=== PATIENT | female | born 1955 | race Caucasian/White ===

== ENCOUNTER 2019-04-14 07:01 | Observation (INO) | payer BC ==
[2019-04-14] VITALS (7 sets, daily range): BP systolic 148–196; BP diastolic 80–100
[~2019-04-14] VITALS: Ht 165.1 cm; Wt 91.2 kg
[~2019-04-14 07:01] MED LIST: ARAVA20 MG PO; CIMZIA400 MG/2 M INJ; METOPROLOL SUC100 MG PO; MULTI-VITAMIN1 EACH PO; PANTOPRAZOLE SO40 MG PO; Z ETODOLAC PO; Z.0.ARAVA20 MG PO; Z.0.CARTIA XT300 MG PO; Z.0.CEFTIN500 MG PO; [UNRECOGNIZED DRUG - OTHER] IM; [UNRECOGNIZED DRUG - OTHER] PO; [UNRECOGNIZED DRUG - OTHER] PO
--- OUTSIDE RECORDS SUMMARY | 2019-04-14 07:06 | XMS REPORT | Clinical Summary ---
Author Author [facility] Address Unknown Phone Unavailable Care Team Providers Care Air Director Name Role Phone Lukas Rodriguez MD PCP Allergies Comments Active Allergy Reactions Severity Noted Date "FEELS LIKE ANTS BITING ALL OVER" Sulfa (Sulfonamide 01/23/2017 Antibiotics) Medications End Date Status Medication Sig Dispensed Refills Start Date Active DULoxetine (CYMBALTA) 60 0 MG capsule 7 Active BELVIQ XR 20 mg tablet TK 1 T PO QAM 2 extended release 24 hr 7 Active metoprolol tartrate TK 1 T PO BID 5 (LOPRESSOR) 50 mg tablet 7 Active pantoprazole (PROTONIX) 0 40 MG EC tablet 7 Active Problems Problem Noted Date Hallux varus (acquired), right foot 01/23/2017 Family History Medical History Relation Name Comments Cancer Maternal Grandmother Rheumatologic disease Mother Relation Name Status Comments Maternal Grandmother Mother Social History Date Tobacco Use Types Packs/Day Years Used Never Smoker Alcohol Use Drinks/Week oz/Week Comments Yes A glass of wine occasionally. Sex Assigned at Date Recorded Not on file Industry Job Start Date Occupation Not on file Not on file Not on file Travel End Travel History Travel Start No recent travel history available. Last Filed Vital Signs Not on file Plan of Treatment Health Maintenance Due Date Last Done Comments BREAST CANCER SCREENING 2004 COLONOSCOPY SCREENING 2004 SHINGLES VACCINES (#1) 2004 INFLUENZA VACCINE 06/03/2019 Results Not on fileafter 04/13/2018 Insurance Type Payer Benefit Subscriber ID Effective Phone Address Plan / Dates Group PPO BCBS BCBS xxxxxxxxxxxx [id number] CHOICE resent PPO/VENKATA LITTLE PPO Advance Directives Patient has advance care planning documents on file. For more information, madai freitas contact: Moise Guidry [address] [place] [address]
[2019-04-14] MEDS ORDERED: MORPHINE SULFATE 2 MG/ML SYR 1ML IV STA (07:15)
[2019-04-14] MEDS ORDERED: SODIUM CHLORIDE 0.9% 1000ML 1,000 ML IV STA (07:15)
[2019-04-14] MEDS ORDERED: ONDANSETRON HCL INJ 2MG/ML 2ML 2 MG/ML VIAL IV STA (07:15)
[2019-04-14] MEDS ORDERED: MORPHINE SULFATE INJ 4 MG/ML INJ 1ML IV SCH (07:30)
[2019-04-14 07:40] LABS: BILIRUBIN,URINE SMALL (NEGATIVE); CLARITY,URINE SL CLOUDY (CLEAR); COLOR,URINE YELLOW (YELLOW); KETONES,URINE 1+ (NEGATIVE); LEUKOCYTE ESTERASE ,URINE NEGATIVE (NEGATIVE); NITRITE,URINE NEGATIVE (NEGATIVE); PROTEIN,URINE DIPSTICK TRACE (NEGATIVE); URINE UROBILINOGEN 0.2 mg/dL (0.2 - 1)
[2019-04-14 07:45] LABS: BASOPHILS % 0.3 % (0.0-1.0); EOSINOPHILS # (AUTO) 0.3 (0.0-0.4); EOSINOPHILS % 2.3 % (0.0-6.0); HEMATOCRIT 38.4 % (34.2-44.1); HEMOGLOBIN 12.3 g/dL (12.0-16.0); LYMPHOCYTES # (AUTO) 2.4 (1.0-3.2); LYMPHOCYTES % 18.7 % (18.0-39.1); MEAN CORPUSCULAR HEMOGLOBIN 30.1 pg (28-32); MEAN CORPUSCULAR VOLUME 94.1 fL (81-99); MONOCYTES # (AUTO) 0.9 (0.2-0.8); MONOCYTES % 6.8 % (4.4-11.3); NEUTROPHILS # (AUTO) 9.3 (2.1-6.9); NEUTROPHILS % 71.5 % (38.7-80.0); PLATELET COUNT 220 x10e3/uL (140-360); RED BLOOD COUNT 4.08 x10e6/uL (3.6-5.1); RED CELL DISTRIBUTION WIDTH 13.5 % (11.7-14.4)
--- NOTE | 2019-04-14 07:53 | NUR ---
DR KO AT PT BEDSIDE
[2019-04-14 07:57] LABS: INR 0.92; PROTHROMBIN TIME 12.9 seconds (11.9-14.5)
[2019-04-14 07:58] LABS: PARTIAL THROMBOPLASTIN TIME 29.3 seconds (23.8-35.5)
[2019-04-14] MEDS ORDERED: SODIUM CHLORIDE 0.9% 1000ML 1,000 ML IV SCH (07:58)
[2019-04-14 07:59] LABS: BACTERIA,URINE RARE /HPF; EPITHELIAL CELLS,URINE RARE /LPF
[2019-04-14] MEDS ORDERED: HYDROMORPHONE 1MG/1ML INJ IV PRN (08:00)
--- NOTE | 2019-04-14 08:02 | NUR ---
DR KO AT PT BEDSIDE
[2019-04-14 08:07] LABS: ALBUMIN 3.5 g/dL (3.5-5.0); ALBUMIN/GLOBULIN RATIO 1.1 (0.8-2.0); ANION GAP 13.6 mmol/L (8-16); CALCIUM 9.3 mg/dL (8.4-10.2); CREATININE, SERUM 0.99 mg/dL (0.57-1.11); POTASSIUM 3.6 mmol/L (3.5-5.1)
--- OUTSIDE RECORDS SUMMARY | 2019-04-14 08:13 | XMS REPORT | Clinical Summary ---
Author Author [facility] Organization [employer] [facility] Address Unknown Phone Unavailable Care Team Providers Care Security Risk Analyst Name Role Phone Lukas Rodriguez MD PCP [...] more information, madai freitas contact: Moise Guidry [address] [place] [address]
[2019-04-14] MEDS ORDERED: HYDROMORPHONE 2MG/ML 2 MG/ML ML IV PRN (08:15)
[2019-04-14] MEDS ORDERED: CEFTRIAXONE SOD 1 GM/NS 50 ML 50 ML IV SCH (08:30)
[2019-04-14] MEDS ORDERED: DEXTROSE 5%/0.45% SOD CHL 1,000 ML IV ONE ×2 (08:30→19:15)
--- NOTE | 2019-04-14 08:59 | Pre Op History & Physical ---
REASON FOR ADMISSION: Left flank pain. HISTORY: This is a 63-year-old female, who over the last four days has had left flank pain. She has had a history of kidney stones in the past. All the stones have passed spontaneously. The patient states that four days ago, she had some pain in the left flank. The pain intensified, but let go. On the next day, the patient's pain intensified again and she felt like different from before which she feels that the stones moved further rapidly and within 24 to 48 hours they passed. She went to an emergency outpatient facility close to her house. There, she had a CT scan done, was given something for pain and she went home. Her , who was my patient brought the CD to my office yesterday afternoon. We were supposed to see her today in the office to determine what to do and unfortunately overnight she developed severe pain, nausea and vomiting and came to the emergency room for evaluation. PAST MEDICAL HISTORY: Kidney stones. ALLERGIES: NONE KNOWN. MEDICATIONS: See list. SOCIAL HISTORY: , has had children, and not sexually active at this time. Last menstrual period was approximately 20 years ago according to the patient. PHYSICAL EXAMINATION: Physical examination is related only to the abdomen. The examination showed the patient does have a left flank pain radiating to the upper quadrant on the left side with no further radiation. RADIOGRAPHS: CT scan done at the outpatient emergency room facility showed a 4 mm stone just at the level of the ureteropelvic junction. There is minimal dilatation and no pyelo tubular backflow. No perinephric stranding. The pain apparently is quite severe. She has no way of releasing the pressure inside the kidney. IMPRESSION: Kidney stone to the left ureter proximal. RECOMMENDATION: I discussed with the patient doing a cystoscopy, perhaps doing a flexible ureteroscopy to see if we can get to the stone today and remove it if possible. I also discussed with the patient that may be if there is too much swelling that we will be able just place a double-J. The patient understands this. She has agreed. We will admit to the hospital and add her on to the schedule and do her as soon as a room is available. Thank you very much. MD TOBY Hansen/MODL /[id number]
--- NOTE | 2019-04-14 09:50 | NUR ---
Recvd patient from ER via wheelchair. AAOx3, Rating pain 5/10 on left flank , no troubles with breathing. Assisted her to bed, call light in reach. keep monitoring
[2019-04-14] MEDS: ONDANSETRON HCL INJ 2MG/ML 2ML 2 MG/ML VIAL IV PRN ×2 (10:14→15:03)
[2019-04-14] MEDS: CEFAZOLIN SOD 1 GM/NS 50ML 50 ML IV SCH ×3 (10:20→21:25)
[2019-04-14] MEDS ORDERED: MIDAZOLAM HCL 2 MG/2 ML VIAL ONE (13:48)
[2019-04-14] MEDS ORDERED: FENTANYL CITRATE/PF 100MCG/2 ML INJ ONE (13:48)
--- NOTE | 2019-04-14 16:46 | NUR ---
paged Dr Redmond to notify elevated BP 190/100, Patient not in any distress
--- NOTE | 2019-04-14 17:25 | NUR ---
PATIENT OFF THE UNIT FOR PROCEDURE, STABLE, AT BED SIDE
[2019-04-14] MEDS ORDERED: IOPAMIDOL 610MG/1ML 300 MG/ML VIAL IV ONE ×2 (17:53→18:27)
--- NOTE | 2019-04-14 19:00 | NUR ---
Received report from previous nurse. Patient is off the unit having a procedure done. Family at bedside
[2019-04-14] MEDS ORDERED: SUGAMMADEX SODIUM 200 MG/2 ML VIAL IV ONE (19:11)
[2019-04-14] MEDS ORDERED: LABETALOL HCL 20 ML ONE (19:19)
[2019-04-14] MEDS ORDERED: ONDANSETRON HCL INJ 2MG/ML 2ML 2 MG/ML VIAL ONE (19:59)
[2019-04-14] MEDS ORDERED: PROPOFOL IV EMULSION 10 MG/ML 20 ML VIAL ONE (19:59)
[2019-04-14] MEDS ORDERED: ROCURONIUM BROMIDE 10 MG/ML 5ML VIAL ONE (19:59)
[2019-04-14] MEDS ORDERED: LIDOCAINE HCL 2% LOCAL INJ 5 ML SDV VIAL INJ ONE (19:59)
[2019-04-14] MEDS ORDERED: SEVOFLURANE INHAL SOLN 250 ML PEN BTL ONE (19:59)
[2019-04-14] MEDS ORDERED: DEXAMETHASONE SOD PHOS INJ 4 MG/ML VIAL ONE (19:59)
[2019-04-14] MEDS ORDERED: FAMOTIDINE 20 MG/2 ML VIAL IV ONE (19:59)
--- NOTE | 2019-04-14 20:10 | NUR ---
Patient came back to the unit via stretcher from the procedure. Family at bedside. Patient complained of pain after procedure.
--- NOTE | 2019-04-14 21:20 | NUR ---
Called Dr. Redmond about blood pressure medication for the patient. Patient's blood pressure is 196/93. Dr. Redmond said to consult Dr. Gillis Addendum: 04/14/19 at 2237 by Taya Navarro RN Add to above note: Patient said after few minutes being in the room, the pain she had, is completely gone and she is in no pain.
--- NOTE | 2019-04-14 21:55 | NUR ---
Dr. Gillis was consulted about patient's high blood pressure. He placed order for Hydralzine 10 mg, IV q6h, PRN for >170 systolic
[2019-04-14] MEDS ORDERED: HYDRALAZINE HCL 20 MG/ML VIAL IV PRN (22:00)
[2019-04-15] VITALS: BP 146/70
--- NOTE | 2019-04-15 06:59 | NUR ---
Gave report to oncoming nurse. Patient in bed. Call light within reach. at bedside.
[2019-04-15 07:19] VITALS: BP 158/74
--- NOTE | 2019-04-15 08:55 | NUR ---
patient resting in bed, denies any pain, not in any distress, call light in reach, at bed side
[2019-04-15 09:36] VITALS: BP 158/74
[2019-04-15] MEDS ORDERED: ONDANSETRON HCL 4 MG ORAL DISINTEGRATING TAB PO PRN (10:45)
[2019-04-15] MEDS ORDERED: ULTRAM50 MG PO (10:52)
[2019-04-15] MEDS ORDERED: GABAPENTIN300 MG PO (10:52)
[2019-04-15] MEDS ORDERED: MACROBID 100 M100 MG PO (10:52)
[2019-04-15 11:16] VITALS: BP 183/84
--- NOTE | 2019-04-15 12:21 | NUR ---
patient discharged home, Dr Gillis and Dr Redmond had rounds. IV canula removed with tip intact, no ss of infiltration. Prescription given, patient aware about f/up appointment. denies any pain no distress noted, at bed side, transported via wheelchair to [facility]
--- NOTE | 2019-04-15 15:51 | Consultation ---
DATE OF CONSULTATION: 04/15/2019 Cardiac Consultation REASON FOR CONSULTATION: Severe uncontrolled hypertension. HISTORY: A 63-year-old lady, who is known with history of hypertension and kidney stone. The patient had obstructive left kidney stone. She came to the hospital. She had yesterday successful placement of stent and removal of stone by Dr. Redmond. Her blood pressure was as high as 190/100 despite adequate pain management. We started the patient on hydralazine and evaluated the patient. The patient on metoprolol succinate 50 mg a day for years. Her blood pressure at home is 140/100 or 95. She does have also history of severe advanced rheumatoid arthritis, followed by Rheumatology, Dr. Thomas. She does have flare-up episodes. She is maintained on medication including Arava 20 mg a day. Her activities are limited to certain extent, she does have shortness of breath on exertion class III Crisp heart Association classification. There is no orthopnea, no paroxysmal nocturnal dyspnea. There is no angina. There is no lower extremity edema. REVIEW OF SYSTEMS: GENERAL: No fever, no chills. HEENT: Occasional stuffiness. No asthma. CARDIAC: As per above. GI: Bloating and indigestion at time, but no hematemesis, no melena. : As per acute illness. Severe flank pain. MUSCULOSKELETAL: Severe arthritis symptoms in several joints. NEUROLOGICAL: No seizure activity. No deficits. HEMATOLOGY: No easy bruising. No bleeding. ENDOCRINE: No diabetes mellitus. SOCIAL HISTORY: She is . She is nonsmoker. She is social alcohol drinker. She is retired. HOME MEDICATIONS: Metoprolol succinate 50 mg a day, Protonix 40 mg a day, Arava 20 mg a day, and other p.r.n. medications. ALLERGIES: SULFA. PAST MEDICAL HISTORY: 1. Hypertension. 2. Kidney stone. 3. Rheumatoid arthritis. 4. Hysterectomy. 5. Appendectomy. 6. Cholecystectomy. 7. Bilateral cataract surgery. 8. Bilateral knee surgery. 9. Left foot reconstruction surgery. 10. Right rotator cuff surgery. FAMILY HISTORY: Father of lung cancer at age 50. Mother of curb and gutter laborer cancer at age 62. Two healthy brothers. No sisters. One healthy daughter. PHYSICAL EXAMINATION: VITAL SIGNS: Height of 5 feet 5 inches, weight of 201 pounds. Blood pressure currently 158/70 after receiving hydralazine, heart rate of 80, afebrile. HEENT: Pupils are reactive. NECK: No elevation of jugular venous pulsation. CHEST: Clear to auscultation and percussion. HEART: PMI 5th left intercostal space. Normal first and second heart sounds. ABDOMEN: Soft with good bowel sounds. No organomegaly. No abdominal bruits. EXTREMITIES: No cyanosis, no clubbing, no edema. Scars of previous surgeries are noted. No signs of deep venous thrombosis. NEUROLOGIC: Awake, alert, oriented. No motor or sensory deficits. LABORATORY DATA: Sodium of 140, potassium 3.6, BUN of 17, creatinine of 0.99, glucose of 106. White blood cell count of 12.9, hemoglobin 12.2, hematocrit 38%, platelet count of 220. EKG showing normal sinus rhythm. IMPRESSION AND PLAN: 1. Uncontrolled hypertension. 2. Rheumatoid arthritis. 3. Status post recent removal of kidney stone. 4. Obstructive uropathy. 5. Multiple joint surgery. Cardiac gamez, I would recommend adding amlodipine to her metoprolol. The choice of amlodipine is because of the patient's rheumatoid arthritis and she takes several medications which can affect renal function, although I prefer usually BERENICE inhibitor, but for the time being we will go with that. The patient's management of blood pressure discussed at length and explained gentle lowering blood pressure rather than abrupt lowering blood pressure to be done. The patient advised to see her sink cutter or her lawn mower repairer for further cardiac evaluation. She may go home. All this discussed and explained to the patient and her . Questions are answered. TIME SPEND OF DIRECT PATIENT CARE AN DISCUSSION WITH HER AND HER IS MORE THEN 60 MIN MD SAM Ocampo/SARAI /[id number] VAHID
--- NOTE | 2019-04-15 22:09 | Operative Report ---
DATE OF PROCEDURE: 04/14/2019 SURGEON: Britton Redmond MD PREOPERATIVE DIAGNOSIS: Left proximal ureteral calculi. POSTOPERATIVE DIAGNOSIS: Left renal calculi. OPERATION PERFORMED: Cystoscopy, retrograde pyelogram, stone manipulation, flexible ureteroscopy, laser lithotripsy, stone extraction and placement of left double-J. ANESTHESIOLOGIST: Staff. ANESTHESIA: General. 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 The patient also had atrophic vaginitis. She had labia minora fusion over this clitoris. The bladder had grade 1 trabeculation, evidence of soft stenosis of the urethral meatus dilated over the scope. Grade 1 trabeculation of the bladder. Both ureteral orifices were in normal position. DESCRIPTION OF PROCEDURE: With the patient under satisfactory general anesthesia, the patient was placed in the supine position on the operating table. The legs were placed in stirrups. Genitalia was then prepped with Betadine soap and solution and draped in usual manner. At this point, a time-out was obtained. We will agree with the procedure as planned. A 22-Moroccan cystourethroscope was passed per urethra into the bladder. The bladder was inspected with a 12-degree angle lens and 7-degree angle lens was also used to inspect the entire bladder. At this point, using the Amie bridge, contrast media was injected retrograde up to the left side using a #8 cone-tipped ureteral catheter. In the proximal ureter just at the level of the ureteropelvic junction, a filling defect was identified. Extra stiff guidewire was introduced, but it would not pass by the stone. Open-ended catheter was then used with a with a guidewire and after manipulating the stone, pushing the stone pop up into the kidney. At that point, the instruments were removed. A Glidewire was introduced 2nd time to make sure it went up into the kidney and it did. Over the Glidewire, an Olympus balloon 10 cm long 20 atmosphere, was introduced in the intramural portion of the ureter was dilated. At this point, I exchanged the Glidewire for an extra stiff guidewire, removed the balloon dilator and then introduced a ureteral access sheath. This was advanced without any difficulty. The dilator was removed through the guidewire, leaving the sheath in place and the flexible ureteroscope was introduced all the way up to the kidney. It is noted again that there were 2 infundibulums in the intrarenal pelvis. The stone had popped off and had gone into the posterior calyx where it was found by direct vision. Using the laser, the stone was broken into 4 fragments. Stone was soft, only 169 joules, 2.5 cooper were used. The NGage Nitinol basket was then introduced through the working channel of the ureteroscope, the stones were grasped and removed in two trips. At this point, the extra stiff guidewire was introduced all the way up to the upper pole collecting system and a 6-Moroccan [employer] double-J was then introduced over the guidewire and it was coiled in the junction between the upper and lower infundibulum. At this point, contrast media was injected retrograde. No evidence of any extravasation was identified in the proximal or distal ureter. Coil was made in the kidney. The coil was also made in the bladder and the sleeve was used to disengage the pusher and leave the double-J in place. At that point, the string was then taped to the patient's mons pubis. The patient was then taken to the recovery room in satisfactory condition. DISCHARGE INSTRUCTIONS: The patient had laryngeal spasm and some high blood pressure. A consultation was obtained with Dr. Gillis. If the patient was met discharge criteria the next day, she will be sent home. If she was kept for some reason, the patient will be discharged in satisfactory condition after she was seen by Dr. Gillis. The patient was given tramadol for pain. She was also given Macrobid to take one tablet p.o. b.i.d. She will be seen in the office on Friday to remove the double-J. We will need a 24-hour urine collection after that as well as finding out the composition of her stone once we have the report. If the patient stays the next day, a separate dictation will be made. MD TOBY Hansen/MODL /[id number]
== END 2019-04-15 12:06 | disposition home or self-care (01) ==
LOC: ER 07:01 → ERHOLD 07:58 → IMCU 09:23
PROVIDERS: ADMIT Urology; ATTEND Urology
DX: N13.2 Hydronephrosis with renal and ureteral calculous obstruction (principal); R11.2 Nausea with vomiting, unspecified; Z87.442 Personal history of urinary calculi; Z88.2 Allergy status to sulfonamides; I10 Essential (primary) hypertension; M06.9 Rheumatoid arthritis, unspecified; Z82.49 Family history of ischemic heart disease and other diseases of the circulatory system; Z79.899 Other long term (current) drug therapy; K21.9 Gastro-esophageal reflux disease without esophagitis; N95.2 Postmenopausal atrophic vaginitis; N32.89 Other specified disorders of bladder
CPT/HCPCS: 36415; 74420; 80053; 81001; 85025; 85610; 85730; 87040; 87086; 87186; 88300; 93005; 96360; 96361; 99284; C1766; C2625; G0378; J0360; J0690; J0696; J1100; J2001; J2250; J2270; J2405; J7030

== ENCOUNTER 2019-10-20 10:17 | Emergency (ER) | payer BC ==
[~2019-10-20] VITALS: Ht 165.1 cm; Wt 91.2 kg
[~2019-10-20 10:17] MED LIST changes: +GABAPENTIN300 MG PO; +MACROBID 100 M100 MG PO; +ULTRAM50 MG PO
[2019-10-20] MEDS ORDERED: DEXAMETHASONE SOD PHOS 10 MG/1 ML VIAL IM ONE (10:30)
[2019-10-20] MEDS ORDERED: KETOROLAC TROMETHAMINE 60 MG/2 ML VIAL IM ONE (10:30)
[2019-10-20] MEDS ORDERED: GABAPENTIN 300 MG CAP PO ONE (10:30)
[2019-10-20] MEDS ORDERED: DIAZEPAM 5 MG TAB PO ONE (10:45)
--- NOTE | 2019-10-20 11:42 | Diagnostic Imaging Report ---
Lumbar spine series, 5 views. History: Sciatica, back pain. Comparison: None available. Discussion: The paraspinal soft tissues are unremarkable. Surgical device is present posteriorly at S1. There is no evidence of acute fracture. There is grade 1 spondylolisthesis of L5 on S1 without definite spondylolysis. Mild disc space narrowing, osteophytosis, and posterior facet sclerosis are present in the lower lumbar spine. IMPRESSION: No acute osseous abnormality. Degenerative changes and grade 1 spondylolisthesis noted at L5-S1 Signed by: Jamaal Melvin on 10/20/2019 11:39 AM
--- NOTE | 2019-10-20 11:45 | Diagnostic Imaging Report ---
Right hip and pelvis, 3 views. History: Fall, pain. Findings: The soft tissues are normal. Bone mineralization is normal. There is no evidence of fracture or dislocation. There are no lytic or sclerotic lesions. The joint spaces are within normal limits. IMPRESSION: Normal right hip and pelvis. Signed by: Jamaal Melvin on 10/20/2019 11:42 AM
[2019-10-20] MEDS ORDERED: KETOROLAC TROMETHAMINE 60 MG/2 ML VIAL ONE (14:24)
[2019-10-20] MEDS ORDERED: DIAZEPAM 5 MG TAB ONE (14:26)
[2019-10-20] MEDS ORDERED: GABAPENTIN 300 MG CAP ONE (14:26)
[2019-10-20] MEDS ORDERED: DEXAMETHASONE SOD PHOS 10 MG/1 ML VIAL ONE (14:26)
--- OUTSIDE RECORDS SUMMARY | 2019-10-22 13:55 | XMS REPORT ---
Author [facility] Address Unknown Phone Unavailable Care Team Providers Care Chucking And Sawing Machine Operator Name Role Phone Reji NANCE Unavailable Unavailable CRISTAL KO Unavailable Unavailable Problems This patient has no known problems. Allergies, Adverse Reactions, Alerts This patient has no known allergies or adverse reactions. Medications This patient has no known medications. Results Test Description Test Time Test Comments Text Results Atomic Results Result Comments HIP RIGHT 2-3 VW (+/- PELVIS) 2019-10-20 11:41:00 [place] [address] Patient Name: ANDRE CROOK MR #: [id number] : 1955 Age/Sex: 63/F Req #: [id number] Adm Physician: Ordered by: TIFFANIE NANCE MD Report #: [id number] Location: ER Room/Bed: Procedure: [id number] DX/HIP RIGHT 2-3 VW (+/- PELVIS) Exam Date: Exam Time: REPORT STATUS: Signed Right hip and pelvis, 3 views. History: Fall, pain. Findings: The soft tissues are normal. Bone mineralization is normal. There is no evidence of fracture or dislocation. There are no lytic or sclerotic lesions. The joint spaces are within normal limits. IMPRESSION: Normal right hip and pelvis. Signed by: Jamaal Melvin on 10/20/2019 11:42 AM Dictated By: JAMAAL MELVIN MD 1142 Transcribed By: JANEL on 10/20/19 1142 COPY TO: TIFFANIE NANCE MD SP LUMBAR, COMPLETE MIN 4VW 2019-10-20 11:36:00 [facility] [address] [place] [address] Patient Name: ANDRE CROOK MR #: [id number] : 1955 Age/Sex: 63/F Req #: [id number] Adm Physician: Ordered by: TIFFANIE NANCE MD Report #: [id number] Location: ER Room/Bed: Procedure: [id number] DX/OFELIA LUMBAR, COMPLETE MIN 4VW Exam Date: 10/20/19 Exam Time: 1050 REPORT STATUS: Signed Lumbar spine series, 5 views. History: Sciatica, back pain. Comparison: None available. Discussion: The paraspinal soft tissues are unremarkable. Surgical device is present posteriorly at S1. There is no evidence of acute fracture. There is grade 1 spondylolisthesis of L5 on S1 without definite spondylolysis. Mild disc space narrowing, osteophytosis, and posterior facet sclerosis are present in the lower lumbar spine. IMPRESSION: No acute osseous abnormality. Degenerative changes and grade 1 spondylolisthesis noted at L5-S1 Signed by: Jamaal Melvin on 10/20/2019 11:39 AM Dictated By: JAMAAL MELVIN MD 1139 Transcribed By: JANEL on 10/20/19 113 COPY TO: TIFFANIE NANCE MD RETROGRADE PYELOGRAM 2019-04-19 10:30:00 [facility] [address] [place] [address] Patient Name: ANDRE CROOK MR #: [id number] : 1955 Age/Sex: 63/F Req #: [id number] [facility] Physician: CRISTAL KO MD Ordered by: CRISTAL KO MD Report #: [id number] Location: [facility] Room/Bed: [place] [address] Procedure: [id number] DX/RETROGRADE PYELOGRAM Exam Date: 04/14/19 Exam Time: 1815 REPORT STATUS: Signed PROCEDURE: X-RAY RETROGRADE PYELOGRAM COMPARISON: None. INDICATIONS: Left ureteral stone FINDINGS: Nineteen intraoperative spot images of the abdomen and pelvis were obtained. There is retrograde cannulization of the left ureter with contrast injection. A balloon has been placed with dilatation at the ureterovesical junction. Ureteroscope advanced into the collecting system. 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 A double-J left ureteral stent was placed. Cumulative fluoro time: 28 seconds Cumulative area dose product: 262.30 cGycm2 Cumulative air kerma: 7.27 mGy CONCLUSION: 1. Retrograde pyelogram as described above. 2. Please see the full report provided by the performing Physician. Maximilian Ruelas D.O. Dictated by: Maximilian Ruelas D.O. on 04/19/2019 at 10:30 Electronically approved by: Maximilian Ruelas D.O. on 04/19/2019 at 10:30 Dictated By: MAXIMILIAN RUELAS DO 1030 Transcribed By: RAFAEL on 04/19/19 1030 COPY TO: CRISTAL KO MD
== END 2019-10-20 15:01 | disposition home or self-care (01) ==
LOC: ER 10:35
DX: M54.41 Lumbago with sciatica, right side (principal); M54.16 Radiculopathy, lumbar region; I10 Essential (primary) hypertension
CPT/HCPCS: 72110; 73502; 99283; J1100; J1885